=== PATIENT | female | born 1970 | race Two or more races ===

== ENCOUNTER 2022-01-29 07:41 | Outpatient (CLI) | payer OTHER | END 2022-01-29 07:43 | disposition home or self-care (01) | LOC: LAB 07:41 | PROVIDERS: ATTEND Internal Medicine Cardiovascular Disease | DX: I11.9 Hypertensive heart disease without heart failure (principal); E78.1 Pure hyperglyceridemia; E11.9 Type 2 diabetes mellitus without complications ==

== ENCOUNTER 2022-04-24 08:36 | Outpatient (CLI) | payer OTHER | END 2022-04-24 08:37 | disposition home or self-care (01) | LOC: LAB 08:36 | PROVIDERS: ATTEND Internal Medicine Cardiovascular Disease | DX: D64.9 Anemia, unspecified (principal) ==

== ENCOUNTER → 2022-04-26 | Outpatient (CLI) | payer OTHER | END | disposition home or self-care (01) | LOC: LAB 07:00 | PROVIDERS: ATTEND Internal Medicine Cardiovascular Disease | DX: D64.9 Anemia, unspecified (principal) ==

== ENCOUNTER 2022-06-16 09:27 | Outpatient (CLI) | payer OTHER | END 2022-06-16 09:47 | disposition home or self-care (01) | LOC: TOM 09:27 | PROVIDERS: ATTEND Urology | DX: R31.21 Asymptomatic microscopic hematuria (principal); Z89.442 Acquired absence of left ankle ==

== ENCOUNTER 2022-06-21 06:09 | Outpatient (CLI) | payer OTHER | END 2022-06-21 06:10 | disposition home or self-care (01) | LOC: LAB 06:09 | PROVIDERS: ATTEND Urology | DX: R31.21 Asymptomatic microscopic hematuria (principal) ==

== ENCOUNTER 2022-06-27 11:11 | Emergency (ER) | payer OTHER ==
[~2022-06-27] VITALS: Ht 157.5 cm; Wt 54.4 kg
[2022-06-27] MEDS ORDERED: LISINOPRIL20 MG PO (11:30)
== END 2022-06-27 12:59 | disposition home or self-care (01) ==
LOC: ER 11:11
DX: S29.9XXA Unspecified injury of thorax, initial encounter (principal); S21.202A Unspecified open wound of left back wall of thorax without penetration into thoracic cavity, initial encounter; S21.201A Unspecified open wound of right back wall of thorax without penetration into thoracic cavity, initial encounter; V43.52XA Car driver injured in collision with other type car in traffic accident, initial encounter; Y93.89 Activity, other specified; Y92.413 State road as the place of occurrence of the external cause; Z91.041 Radiographic dye allergy status; Z88.8 Allergy status to other drugs, medicaments and biological substances; I10 Essential (primary) hypertension

== ENCOUNTER 2022-09-03 09:04 | Outpatient (CLI) | payer OTHER ==
[~2022-09-03 09:04] MED LIST: LISINOPRIL20 MG PO
== END 2022-09-03 09:12 | disposition home or self-care (01) ==
LOC: LAB 09:04
DX: N20.0 Calculus of kidney (principal)

== ENCOUNTER 2022-09-13 08:13 | Outpatient (CLI) | payer OTHER | END 2022-09-13 09:07 | disposition home or self-care (01) | LOC: LAB 08:13 | PROVIDERS: ATTEND Urology | DX: Z20.828 Contact with and (suspected) exposure to other viral communicable diseases (principal) ==

== ENCOUNTER 2022-09-25 09:45 | Outpatient (CLI) | payer OTHER | END 2022-09-25 09:49 | disposition home or self-care (01) | LOC: RAD 09:45 | PROVIDERS: ATTEND Urology | DX: N20.0 Calculus of kidney (principal) ==

== ENCOUNTER 2022-09-27 06:06 | Outpatient (CLI) | payer OTHER | END 2022-09-27 06:14 | disposition home or self-care (01) | LOC: LAB 06:06 | PROVIDERS: ATTEND Internal Medicine | DX: U07.1 COVID-19 (principal); B34.1 Enterovirus infection, unspecified ==

== ENCOUNTER 2022-09-28 07:59 | Outpatient (CLI) | payer OTHER | END 2022-09-28 08:00 | disposition home or self-care (01) | LOC: NUCLEAR 07:59 | PROVIDERS: ATTEND Internal Medicine Cardiovascular Disease | DX: R07.9 Chest pain, unspecified (principal); R06.00 Dyspnea, unspecified ==

== ENCOUNTER 2022-11-29 08:07 | Outpatient (CLI) | payer OTHER | END 2022-11-29 08:15 | disposition home or self-care (01) | LOC: RAD 08:07 | DX: N20.0 Calculus of kidney (principal) ==

== ENCOUNTER 2023-01-07 08:30 | Outpatient (CLI) | payer OTHER | END 2023-01-07 08:54 | disposition home or self-care (01) | LOC: TOM 08:30 | PROVIDERS: ATTEND Urology | DX: N20.1 Calculus of ureter (principal) ==

== ENCOUNTER 2023-03-28 07:47 | Outpatient (CLI) | payer OTHER | END 2023-03-28 07:52 | disposition home or self-care (01) | LOC: MAMO-SONO 07:47 | PROVIDERS: ATTEND Specialist | DX: N60.11 Diffuse cystic mastopathy of right breast (principal); N60.12 Diffuse cystic mastopathy of left breast; Z12.31 Encounter for screening mammogram for malignant neoplasm of breast ==

== ENCOUNTER 2023-06-04 11:28 | Outpatient (CLI) | payer OTHER ==
[2023-06-04 13:03] LABS: HEMATOCRIT 39.8 % (36.0-45.00); HEMOGLOBIN 13.4 g/dL (12.0-15.00); MEAN CELL VOLUME 87.1 fL (80.00-100.00); MEAN CORPUSCULAR HEMOGLOBIN 29.3 pg (27.00-32.0); MEAN CORPUSCULAR HGB CONC 33.6 g/dl (32.0-36.0); PLATELET COUNT 353 K/uL (150-450); RED BLOOD COUNT 4.57 M/uL (4.00-6.00); RED CELL DISTRIBUTION WIDTH 14.4 % (11.5-14.5)
[2023-06-04 13:24] LABS: ALBUMIN 4.2 gm/dL (3.4-5.0); BILIRUBIN TOTAL 0.49 mg/dL (0.3-1.2); CALCIUM 10.1 mg/dL (8.5-10.1); CHOL HDL RATIO 4.8 (0-5.0); CREATININE SERUM 0.79 mg/dL (0.55-1.02); GFR 76.13; GLOBULINA 4.2 G/DL (2.4-3.5); POTASSIUM 4.44 mEq/L (3.5-5.1); TOTAL PROTEIN 8.4 gm/dL (6.4-8.2); TSH 0.763 uIU/mL (0.358-3.74)
== END 2023-06-04 11:34 | disposition home or self-care (01) ==
LOC: LAB 11:28
PROVIDERS: ATTEND Internal Medicine Cardiovascular Disease
DX: E11.9 Type 2 diabetes mellitus without complications (principal); E28.1 Androgen excess; E03.9 Hypothyroidism, unspecified

== ENCOUNTER 2023-08-20 11:29 | Outpatient (CLI) | payer OTHER ==
[2023-08-20 12:12] LABS: URINE APPEARANCE Clear; URINE BILIRRUBIN Negative (NEGATIVE); URINE BLOOD Moderate; URINE COLOR Yellow; URINE GLUCOSE Negative (NEGATIVE); URINE LEUKOCYTE Moderate; URINE NITRATE Negative; URINE PROTEIN Negative (NEGATIVE); URINE UROBILINOGEN 0.2 E.U./dl
[2023-08-20 12:13] LABS: URINE BACTERIA 2279.1 uL (0.0-1933); URINE EPITHELIAL CELLS 45.9 uL (0.0-38.8); URINE RBC 43.5 uL (0.0-20.8); URINE WBC 84.7 uL (0.0-23.2)
== END 2023-08-20 11:34 | disposition home or self-care (01) ==
LOC: LAB 11:29
PROVIDERS: ATTEND Internal Medicine Cardiovascular Disease
DX: R31.21 Asymptomatic microscopic hematuria (principal)